=== PATIENT | female | born 1990 | race Two or more races ===

== ENCOUNTER 2021-04-01 16:27 | Outpatient (CLI) | payer OTHER ==
[2021-04-01] MEDS ORDERED: PRENATAL TABLE1 EAC1 PO (17:15)
[2021-04-01] MEDS ORDERED: IRON325 MG PO (17:15)
[2021-04-01] MEDS ORDERED: ECOTRIN81 MG PO (17:16)
[2021-04-01] MEDS ORDERED: FOLIC ACID0.8 M1 PO (17:16)
== END 2021-04-02 16:46 | disposition home or self-care (01) ==
LOC: OBS/DEL 16:27
PROVIDERS: ATTEND Obstetrics & Gynecology
DX: O26.843 Uterine size-date discrepancy, third trimester (principal); O30.033 Twin pregnancy, monochorionic/diamniotic, third trimester; O14.93 Unspecified pre-eclampsia, third trimester; Z3A.34 34 weeks gestation of pregnancy

== ENCOUNTER 2021-04-17 09:15 | Inpatient (IN) | payer OTHER ==
[~2021-04-17] VITALS: Ht 157.5 cm; Wt 2.3 kg
[~2021-04-17 09:15] MED LIST: ECOTRIN81 MG PO; FOLIC ACID0.8 M1 PO; IRON325 MG PO; PRENATAL TABLE1 EAC1 PO
== END 2021-04-26 13:51 | disposition home or self-care (01) | DRG 788 ==
LOC: OB/GYN 04-23 08:45 → O/R 04-23 08:45 → LDR 04-23 09:15 → OB/GYN 04-23 19:08
PROVIDERS: ADMIT Obstetrics & Gynecology; ATTEND Obstetrics & Gynecology
PROC: 4A1HXFZ Monitoring of Products of Conception, Cardiac Rhythm, External Approach (ICD-10-PCS; 2021-04-23)
PROC: 10D00Z1 Extraction of Products of Conception, Low, Open Approach (ICD-10-PCS; principal; 2021-04-23 15:30)
DX: O30.003 Twin pregnancy, unspecified number of placenta and unspecified number of amniotic sacs, third trimester (principal); O64.8XX2 Obstructed labor due to other malposition and malpresentation, fetus 2; Z3A.37 37 weeks gestation of pregnancy; Z37.2 Twins, both liveborn